=== PATIENT | female | born 1995 | race Caucasian/White ===

== ENCOUNTER → 2020-11-06 | Outpatient (CLI) | payer SELFPAY ==
--- NOTE | 2020-11-06 13:44 | REP ---
INDICATION: Z32.01 DATING . COMPARISON: None. TECHNIQUE: Real-time sonographic evaluation of gravid uterus performed. FINDINGS: There is a single living intrauterine gestation. The estimated gestational age is 8 weeks 5 days based on a crown-rump length of 20 mm. EDC 06/13/2021. heart rate is 167 beats per minute. There is no subchorionic hemorrhage. The ovaries are normal in appearance. IMPRESSION: Viable intrauterine gestation with estimated gestational age 8 weeks 5 days. <Electronically signed by Maximiliano Pryor > 11/06/20 [id number]
== END ==
LOC: M PLAIMG 13:08
PROVIDERS: ATTEND Physician Assistant
DX: Z36.9 Encounter for antenatal screening, unspecified (principal); Z3A.08 8 weeks gestation of pregnancy